=== PATIENT | female | born 2000 | race Caucasian/White ===

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

== ENCOUNTER → 2018-03-04 | Outpatient (CLI) | payer OTHER ==
[~2018-03-04] MED LIST: BCPILLS PO; IBUP-103 PO; MULT-726 PO
[2018-03-04 12:49] LABS: BASO % 0.3 %; BASO ABS # 0.03 K/uL (0-0.2); EOS % 1.2 %; EOS ABS # 0.11 K/uL (0-0.5); HEMATOCRIT 43.3 % (37-47); HEMOGLOBIN 13.9 g/dL (12.0-16.0); IG# 0.02 K/uL (0.00-0.02); LYMPH % 35.4 %; LYMPH ABS # 3.16 K/uL (1.2-3.4); MEAN CELL VOLUME 93.7 fL (80-100); MEAN CORPUSCULAR HEMOGLOBIN 30.1 pg (25-34); MEAN CORPUSCULAR HGB CONC 32.1 g/dl (32-36); MEAN PLATELET VOLUME 10.8 fL (7.4-10.4); MONO % 6.4 %; MONO ABS # 0.57 K/uL (0.11-0.59); NEUT % 56.5 %; NEUT ABS # 5.03 K/uL (1.4-6.5); PLATELET COUNT 346 K/uL (130-400); RED CELL DISTRIBUTION WIDTH CV 13.8 % (11.5-14.5); RED CELL DISTRIBUTION WIDTH SD 47.3 fL (36.4-46.3); WHITE BLOOD COUNT 8.92 K/uL (4.8-10.8)
== END | disposition home or self-care (01) ==
LOC: C.LABBFT 09:33
PROVIDERS: ATTEND Pediatrics
DX: F41.9 Anxiety disorder, unspecified (principal)

== ENCOUNTER 2025-02-11 18:06 | Inpatient (IN) ==
[2025-02-12] MEDS ORDERED: LIDOCAINE 1% LOCAL 20 ML VIAL INFIL PRN ×2 (19:43→21:05)
[2025-02-12] MEDS ORDERED: OXYTOCIN 30 UNITS/NSS 30 UNITS/500 ML BAG IV PRN ×2 (19:43→21:05)
[2025-02-12] MEDS ORDERED: CALCIUM CARBONATE 500 MG CHEWABLE TAB PO PRN (21:05)
[2025-02-12] MEDS ORDERED: ACETAMINOPHEN 500 MG TAB PO PRN (21:05)
--- NOTE | 2025-02-12 21:13 | History & Physical Report ---
Date of Service February 12, 2025 Assessment & Plan (1) Gestational hypertension w/o significant proteinuria in 3rd trimester: Plan: Induction of labor Admission and Anticipated Discharge Date Admission Date: February 12, 2025 History of Present Illness Chief Complaint: Intrauterine 39 weeks 5 days gestation Elevated blood pressure Primary Care Provider: NO PCP Patient is a 24-year-old 1 para 0 she is in good general health. been well dated with a first trimester ultrasound. Her due date 02/14/2025. has been complicated by anemia. Patient was started on baby aspirin earlier in her due to the fact that she was deemed to be high risk for toxemia. Patient started elevated blood pressures about the past week. Due to persistent elevation of blood pressure was admitted for induction. Patient was placed on the monitor had a reactive NST. Allergies Allergy/AdvReac Type Severity Reaction Status Date / Time No Known Allergies Allergy Verified 02/12/25 20:00 Home Medications Medication Instructions Recorded Confirmed Type aspirin 81 mg capsule 81 mg PO DAILY 01/31/25 02/12/25 History fexofenadine 60 mg tablet 180 mg PO DAILY 01/31/25 02/12/25 History iron,carbonyl 65 mg-vitamin C 125 1 tab PO DAILY 01/31/25 02/12/25 History mg tablet,delayed release (Vitron-C) omeprazole 20 mg capsule,delayed 20 mg PO DAILY 01/31/25 02/12/25 History release [id number] 1 mg 1 tab PO DAILY 01/31/25 02/12/25 History tablet Past Med/Surg History Problem List (Updated 02/10/25 @ 15:21 by Meena Gao MD) Gestational hypertension w/o significant proteinuria in 3rd trimester with 39 completed weeks gestation Hypertension affecting Encounter for control (Acute) Allergic reaction (Acute) Medical History (Updated 02/10/25 @ 15:21 by Meena Gao MD) No significant active problems Surgical History [place] teeth extracted Family History Grandmother Breast cancer Hypertension Mother Diabetes Hypertension Father Hypertension Denies family history of Ovarian cancer Prostate cancer Myocardial infarction Lung cancer Colorectal cancer Stroke Social History Smoking Status: Never smoker Second Hand Exposure: No; Do You Dip or Chew Tobacco: No; Hx Alcohol Use: No Hx Substance Use: No Preferred Language: Lithuanian Communication Ability: Effective Wildlife Science Professor Required: No Beliefs That Will Affect Care: None marital status: Single Current Living Situation: Spouse Current Living Situation Comment: Pt lives with her boyfriend, Yefri Solares and one cat and one dog current occupational status: employed current occupation: Production Other Information That Helps Us Care for You: No Feels Safe at Home: Yes Safety Concerns: Feels Safe At This Time caffeine: No Dental Care, Regularly: Yes Physical Activity Frequency: 1-2 Times per Week Seatbelt Use: always Sunscreen Use: No Assistive Devices: None Physical Exam Physical Exam: Physical exam revealed a well-developed well-nourished 24-year-old white female alert oriented x 3 cooperative no acute distress. Heart had regular rhythm S1 and S2 were normal. Lungs are clear to auscultation percussion. Trachea was midline there was no cervical adenopathy. Breast exam was normal abdomen revealed a term size fetus estimated weight of 7 to 8 pounds. There was no CVA tenderness. There is no abdominal tenderness. Pelvic exam revealed a vertex presentation cervix was posterior 1-1/2 cm dilated approximately 30% effaced soft. Head was at a station -2 Results & Data Results & Data Vital Signs (Past 12 Hours) Vital Signs Temp Pulse Resp BP Pulse Ox 02/12/25 20:51 83 129/88 02/12/25 19:47 89 94 02/12/25 19:38 93 H 139/98 02/12/25 19:37 36.8 C 93 H 20 139/98 95 Diagnostic Findings Reactive NST Medications Administered Cytotec p.o. Code Status & VTE Plan VTE Prophylaxis Plan VTE Prophylaxis will be ordered: Yes
[2025-02-12 21:17] LABS: Hematocrit (blood only) 35.7 % (37.0-47.0); Hemoglobin 11.6 g/dl (12.0-16.0); Mean Corpuscular Hemoglobin 30.3 pg (25.0-34.0); Mean Corpuscular Volume 93.2 fL (80.0-100.0); Platelet Count 260 K/uL (130-400); RDW Standard Deviation 50.4 fL (36.4-46.3); Red Blood Count 3.83 M/uL (4.20-5.40); White Blood Count 10.87 K/ul (4.8-10.8)
[2025-02-12] MEDS: miSOPROStoL 50 MCG TAB PO PRN (22:27)
[2025-02-13] MEDS: LACTATED RINGER'S 1,000 ML IV PRN ×2 (03:15→11:14)
[2025-02-13] MEDS: BUTORPHANOL TARTRATE 1 MG/ML VIAL IV ONE (10:52)
--- NOTE | 2025-02-13 11:03 | Anesthesiology Consultation ---
Date of Service February 13, 2025 Assessment & Plan (1) Encounter for pre-operative examination: Chart Review Chart Review: Acceptable Risk for Labor Epidural History Height/Weight Height: 5 ft 1.5 in Weight: 112.037 kg Allergies Allergy/AdvReac Type Severity Reaction Status Date / Time No Known Allergies Allergy Verified 02/12/25 20:00 Medications Home Medications Medication Instructions Recorded Confirmed Last Taken aspirin 81 mg capsule 81 mg PO DAILY 01/31/25 02/12/25 02/12/25 fexofenadine 60 mg tablet 180 mg PO DAILY 01/31/25 02/12/25 02/12/25 iron,carbonyl 65 mg-vitamin C 125 1 tab PO DAILY 01/31/25 02/12/25 02/12/25 mg tablet,delayed release (Vitron-C) omeprazole 20 mg capsule,delayed 20 mg PO DAILY 01/31/25 02/12/25 02/12/25 release [id number] 1 mg 1 tab PO DAILY 01/31/25 02/12/25 02/12/25 tablet Active Medications Generic Name Dose Route Start Last Admin Trade Name Freq PRN Reason Stop Dose Admin Lactated Ringer's 1,000 mls @ 125 mls/hr 02/12/25 21:05 02/13/25 03:15 Lr IV 02/14/25 21:04 125 mls/hr .Q8H PRN Administration L&D Protocol Protocol Misoprostol 50 mcg 02/12/25 21:45 02/13/25 07:35 Misoprostol 50 Mcg Tab PO 03/14/25 21:44 50 mcg Q4H PRN Administration IOL Past Medical History Medical History (Updated 02/13/25 @ 11:03 by Jigar Butt MD) No significant active problems Past Family History Family History Grandmother Breast cancer Hypertension Mother Diabetes Hypertension Father Hypertension Denies family history of Ovarian cancer Prostate cancer Myocardial infarction Lung cancer Colorectal cancer Stroke Past Surgical History Surgical History [place] teeth extracted Social History Smoking Status: Never smoker Do You Dip or Chew Tobacco: No Hx Alcohol Use: No Alcohol type: hard liquor Hx Substance Use: No substance use type: does not use Physical Exam Vital Signs Last Vital Signs Temp 36.8 C 02/13/25 07:02 Pulse 74 02/13/25 11:00 Resp 18 02/13/25 07:02 BP 131/84 02/13/25 07:02 Pulse Ox 94 02/13/25 11:00 O2 Del Method Room Air 02/13/25 06:30 Testing Laboratory Results 02/12/25 20:36
[2025-02-13] MEDS: LIDOCAINE 2%/EPINEPHRINE 1:200,000 20 ML PF ONE (11:43)
[2025-02-13] MEDS: BUPIVACAINE 0.25% PF 30 ML VIAL ONE (11:43)
[2025-02-13] MEDS: fentANYL 2 MCG/ML BUPIVacaine 0.125%-NSS 100ML BAG ONE (11:45)
[2025-02-13] MEDS ORDERED: ROPIVACAINE 0.5% PF 5 MG/ML 20 ML VIAL EPI PRN (11:47)
[2025-02-13] MEDS ORDERED: NALOXONE HCL 0.4 MG/1 ML VIAL/CARP IV PRN (11:47)
[2025-02-13] MEDS ORDERED: ONDANSETRON INJ 2 MG/ML 2 ML VIAL IV PRN (11:47)
[2025-02-13] MEDS ORDERED: BUPIVACAINE 0.25% PF 30 ML VIAL EPI PRN (11:47)
[2025-02-13] MEDS ORDERED: fentANYL 2 MCG/ML BUPIVacaine 0.125%-NSS 100ML BAG EPI PRN (11:47)
[2025-02-13] MEDS ORDERED: LIDOCAINE 2% MPF LOCAL 5 ML VIAL EPI PRN (11:47)
[2025-02-13] MEDS ORDERED: SODIUM CHLORIDE 0.9% PF INJ 10 ML VIAL EPI PRN (11:47)
[2025-02-13] MEDS ORDERED: NALOXONE HCL 1 MG in SODIUM CHLORIDE 0.9% 1,000 ML IV PRN (11:47)
[2025-02-13] MEDS: SODIUM CHLORIDE 0.9% PF INJ 10 ML VIAL ONE (11:50)
[2025-02-13] MEDS: LIDOCAINE 2%/EPINEPHRINE 1:200,000 20 ML PF EPI STA (12:34)
[2025-02-13] MEDS: BUPIVACAINE 0.25% PF 30 ML VIAL EPI STA (12:34)
[2025-02-13] MEDS: SODIUM CHLORIDE 0.9% PF INJ 10 ML VIAL EPI STA (12:35)
[2025-02-13] MEDS: OXYTOCIN 30 UNITS/NSS 30 UNITS/500 ML BAG IV PRN (13:30)
[2025-02-13] MEDS: METHYLERGONOVINE MALEATE 0.2 MG/ML AMP IM ONE (16:30)
[2025-02-13] MEDS ORDERED: OXYTOCIN 30 UNITS/NSS 30 UNITS/500 ML BAG IV PRN (16:35)
[2025-02-13] MEDS ORDERED: HYDROCORTISONE ACETATE 25 MG SUPP PR PRN (16:35)
[2025-02-13] MEDS ORDERED: ACETAMINOPHEN W/CODEINE #3 1 TAB PO PRN (16:35)
[2025-02-13] MEDS ORDERED: BENZOCAINE 20% SPRY 85 APPLN/85 GM CAN EXT PRN (16:35)
--- NOTE | 2025-02-13 16:40 | Delivery Summary ---
Vaginal Delivery Summary Date of Service February 13, 2025 Vaginal Delivery Summary Patient has been followed in the office for care and delivery. She was started on baby aspirin early in her due to the fact she was high risk for development of toxemia. She has continued this to the present time. Her course was uneventful till about the last week when her pressure started to go up. And she was advised to have induction at about 39 weeks 5 days gestation. She was admitted to the hospital her cervix was 1 cm to 1-1/2 posterior soft vertex -2 station. She was given serial doses of p.o. Cytotec think she had 3 doses of p.o. Cytotec. After this her contractions started to get painful and she was examined she was 4 cm. She was given a dose of Stadol given fluids and then had an epidural for pain control. Epidural worked well. She was augmented with IV Pitocin. Went to full dilatation pushed out a live female via direct occiput anterior position over an intact perineum. Infant was suctioned through the mouth and the nose. Shoulders were delivered without difficulty. Cord was allowed to pulse for 1 full minute. Cord was then clamped cut by the father. Cord blood was taken. With IV Pitocin running the placenta was removed intact. Inspection of the perineum revealed a superficial perineal laceration at approximately 7:00. This was repaired with a running 2-0 Vicryl suture. An additional 0.2 mg of Methergine was given to contract the uterus. Uterus contracted nicely hemostasis was good. Quantitative blood loss was 105 mL. Patient Toller procedure well.
--- NOTE | 2025-02-13 18:00 | Anesthesia Procedure Note ---
Date of Service February 13, 2025 Anesthesia Post Epidural Note Vital Signs Vital Signs: Temp Pulse Resp BP Pulse Ox O2 Del Method 36.7 C 88 18 140/79 95 Room Air 02/13/25 14:20 02/13/25 17:56 02/13/25 11:55 02/13/25 17:56 02/13/25 16:34 02/13/25 06:30 Pain Intensity Abdomen: Pain Intensity: 10 Notes Mental Status: alert / awake / arousable and participated in evaluation Nausea / Vomiting: adequately controlled Pain: adequately controlled Airway Patency, RR, SpO2: stable & adequate BP & HR: stable & adequate Hydration State: stable & adequate Neuraxial Anesthesia: was administered and sensory block is resolving Anesthetic Complications: no major complications apparent Epidural: Removed without complications and With tip intact
[2025-02-13] MEDS: DIPHTHER/TETAN/PERTUS Vaccine (Tdap, Adol/Adult) 0.5mL IM ONE (18:08)
[2025-02-13] MEDS: IBUPROFEN 600 MG TAB PO PRN (20:50)
[2025-02-13] MEDS: DOCUSATE SODIUM 100 MG CAP PO SCH (21:00)
[2025-02-14] MEDS: ACETAMINOPHEN 325 MG TAB PO PRN (03:56)
[2025-02-14 06:18] LABS: Hematocrit (blood only) 33.3 % (37.0-47.0); Hemoglobin 11.1 g/dl (12.0-16.0); Mean Corpuscular Hemoglobin 30.8 pg (25.0-34.0); Mean Corpuscular Volume 92.5 fL (80.0-100.0); Platelet Count 223 K/uL (130-400); RDW Standard Deviation 49.3 fL (36.4-46.3); Red Blood Count 3.60 M/uL (4.20-5.40); White Blood Count 14.70 K/ul (4.8-10.8)
[2025-02-14] MEDS: PRENATAL VITAMIN 1 TAB PO SCH (07:50)
--- NOTE | 2025-02-14 10:30 | Obstetrical Progress Note ---
Date of Service February 14, 2025 Subjective Ambulation: ambulating normally Voiding: no voiding problems Passing Gas:: Yes Diet Tolerance:: regular diet Lochia:: Small Feeding Type:: breast feeding Current Pain Level(1-10): 0 (doing well) Physical Exam Constitutional WD/WN, vitals as above Gastrointestinal (Abdomen) Inspection/Auscultation: abdomen normal to inspection abdomen soft and non-tender. fundus firm below U Musculoskeletal Extremities: extremities normal to inspection Skin no rashes, warm and dry Neurologic patellar DTR's 2+ bilat, sensation intact Psychiatric A+Ox3, euthymic affect Results & Data Vital Signs (Past 12 Hours) Vital Signs Temp Pulse Pulse Resp BP BP Pulse Ox 02/14/25 07:17 36.5 C 85 18 109/76 95 02/14/25 04:00 36.9 C 70 18 112/68 98 02/14/25 00:00 36.6 C 74 16 117/77 97 O2 Del Method 02/14/25 07:17 Room Air 02/14/25 04:00 Room Air 02/14/25 00:00 Room Air Laboratory Results Laboratory Results - last 72 hr 02/12/25 02/14/25 20:36 05:47 WBC 10.87 H 14.70 H RBC 3.83 L 3.60 L Hgb 11.6 L 11.1 L Hct 35.7 L 33.3 L MCV 93.2 92.5 MCH 30.3 30.8 MCHC 32.5 33.3 RDW Std Deviation 50.4 H 49.3 H RDW Coeff of Yehuda 14.9 H 14.6 H Plt Count 260 223 MPV 11.2 10.8 Treponema pallidum Ab Negative
[2025-02-15 00:21] VITALS: O2SAT 97
[2025-02-15 06:33] LABS: Hematocrit (blood only) 31.3 % (37.0-47.0); Hemoglobin 10.2 g/dl (12.0-16.0)
[2025-02-15 07:18] VITALS: RESP 18; TEMP 97.5
--- NOTE | 2025-02-15 08:41 | Obstetrical Progress Note ---
Date of Service February 15, 2025 Assessment & Plan Admission and Anticipated Discharge Date Admission Date: February 12, 2025 Subjective Patient is seen and examined. She feels well, no complaints. Ambulating without dizziness Voiding without difficulty Tolerating regular diet with out N&V Bleeding is minimal No fever/ chills/ CP/ SOB/ N&V/ Leg pain Breast and bottle feeding without problems Vital Signs Temp Pulse Resp BP Pulse Ox O2 Del Method 02/15/25 07:16 36.4 C L 68 18 123/86 97 Room Air 02/15/25 00:10 36.5 C 84 16 104/69 97 Room Air 02/14/25 19:40 36.6 C 82 18 130/85 96 Room Air 02/14/25 15:15 36.8 C 84 18 133/88 98 Room Air 02/14/25 11:10 36.9 C 89 18 122/86 98 Room Air Lab Results 02/12/25 02/14/25 02/15/25 Range/Units 20:36 05:47 05:58 WBC 10.87 H 14.70 H (4.8-10.8) K/ul RBC 3.83 L 3.60 L (4.20-5.40) M/uL Hgb 11.6 L 11.1 L 10.2 L (12.0-16.0) g/dl Hct 35.7 L 33.3 L 31.3 L (37.0-47.0) % MCV 93.2 92.5 (80.0-100.0) fL MCH 30.3 30.8 (25.0-34.0) pg MCHC 32.5 33.3 (32.0-36.0) g/dL RDW Std Deviation 50.4 H 49.3 H (36.4-46.3) fL RDW Coeff of Yehuda 14.9 H 14.6 H (11.5-14.5) % Plt Count 260 223 (130-400) K/uL MPV 11.2 10.8 (9.4-12.4) fL Treponema pallidum Ab Negative (Negative) PE: General: Alert, orientedx3, NAD Abd: soft, NT, fundus firm, below Umbilicus Perineum intact, Lochia rubra minimal Ext; NT, no edema AP: 24 yo s/p , ppd# 2, h/o GHTN, normal BP's VSS Afebrile doing well Continue routine care All questions were answered D/C home , f/u in office Results & Data Vital Signs (Past 12 Hours) Vital Signs Temp Pulse Resp BP Pulse Ox O2 Del Method 02/15/25 07:16 36.4 C L 68 18 123/86 97 Room Air 02/15/25 00:10 36.5 C 84 16 104/69 97 Room Air
[2025-02-15 09:22] VITALS: BP 112/68; PULSE 70
== END 2025-02-15 12:45 | disposition home or self-care (01) | DRG 807 ==
LOC: 4S1 02-12 19:16 → 4E2 02-13 18:58